=== PATIENT | female | born 1970 | race Caucasian/White ===

== ENCOUNTER → 2016-05-19 | Outpatient (CLI) | payer BC, OTHER ==
[~2016-05-19] MED LIST: ONDA8 PO; PROC10TA4 PO; TRAZ50TA4 PO; ZOLO50TA PO
--- NOTE | 2016-05-20 17:29 | EKG ---
Date Performed: 05/19/2016 Time Performed: 16:07:49 PTAGE: 45 years EKG: Sinus rhythm LOW QRS VOLTAGE IN PRECORDIAL LEADS POSSIBLE ANTERIOR MYOCARDIAL INFARCTION , OF INDETERMINATE AGE P OSSIBLE INFERIOR MYOCARDIAL INFARCTION , PROBABLY OLD ABNORMAL ECG NO PREVIOUS TRACING DOCTOR: Miah Manrique Interpretating Date/Time 05/20/2016 17:27:47
== END ==
LOC: HCAV 15:39
PROVIDERS: ATTEND Internal Medicine Hematology & Oncology
DX: Z01.810 Encounter for preprocedural cardiovascular examination (principal)
CPT/HCPCS: 93005